=== PATIENT | male | born 1960 | race Asian ===

== ENCOUNTER 2017-07-15 02:20 | Emergency (ER) | payer OTHER ==
[~2017-07-15] VITALS: Ht 160 cm; Wt 57.0 kg
[2017-07-15 02:29] VITALS: BP 129/86; PULSE 77; RESP 18; TEMP 97.7; O2SAT 97
[2017-07-15] MEDS ORDERED: TETANUS/DIPHTHERIA TOXOID ADULT 0.5 ML VIAL IM ONE (03:30)
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
[2017-07-15] MEDS ORDERED: BUPIVACAINE/EPINEPHRINE 0.5% PF 30 ML VIAL NERV BLOCK ONE (03:45)
--- NOTE | 2017-07-15 04:03 | PD ---
Physical Exam Narrative I was asked by Dr. Gunderson to repair patient's laceration. Please see his documentation for full H&P. Data Data Last Documented VS Vital Signs Date Time Temp Pulse Resp B/P (MAP) Pulse Ox O2 Delivery O2 Flow Rate FiO2 07/15/17 02:45 98 Room Air 07/15/17 02:29 97.7 77 18 129/86 (100) Orders Orders Ct Brain W/O Iv Contrast(Rout) (07/15/17 ) Tetanus/Diphtheria Tox Adult (Tetanus/Di (07/15/17 03:30) Bupivacaine-Epi Pf 0.5% Inj (Sensorcaine (07/15/17 03:45) Ct Cerv Spine W/O Contrast (07/15/17 ) MDM Supervised Visit with RASHID: No Procedures Procedure Narrative LACERATION REPAIR LOCATION: Right frontal lobe LENGTH: Proximal by 6.5 cm in total length NUMBER OF STITCHES/CYNDY: Total of 7 combination of simple interrupted and simple mattress REPAIR: Verbal consent was obtained. The area of the laceration was cleaned and prepped. The laceration was infiltrated with Marcaine with epi. The wound was copiously irrigated and explored without evidence of foreign body, bony involvement, ligament injury, tendon injury, or neurovascular injury. The wound was closed using 5-0 Vicryl. This was a single layer repair. The patient was advised to keep the affected area as clean and dry as possible using soap and water. There were no complications. Patient tolerated the procedure well. Patient Instructions: Care For Your Absorbable Stitches (ED), General Instructions Wale Ferrer Jul 15, 2017 04:03
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
[2017-07-15 05:05] VITALS: BP 117/78; PULSE 78; RESP 18; O2SAT 98
== END 2017-07-15 05:10 | disposition home or self-care (01) ==
LOC: NEPC 02:20 → EDBD 02:20 → NEPC 05:10
DX: S01.81XA Laceration without foreign body of other part of head, initial encounter (principal); S09.90XA Unspecified injury of head, initial encounter; V47.5XXA Car driver injured in collision with fixed or stationary object in traffic accident, initial encounter; Z23 Encounter for immunization
CPT/HCPCS: 12014; 70450; 72125; 90471; 90714